=== PATIENT | female | born 1985 | race Asian ===

== ENCOUNTER 2024-09-25 15:05 | Emergency (ER) | payer BC ==
[2024-09-25] MEDS ORDERED: METOCLOPRAMIDE HCL INJECTION 10 MG/2 ML VIAL ONE (15:20)
[2024-09-25 15:24] VITALS: BP 124/96; PULSE 61; RESP 18; TEMP 98.4; BMI 30.7
[2024-09-25] MEDS: METOCLOPRAMIDE HCL INJECTION 10 MG/2 ML VIAL IVPUSH ONE (15:26)
[2024-09-25] MEDS ORDERED: ACETAMINOPHEN 325 MG TABLET (FP) ONE (16:19)
[2024-09-25] MEDS: ACETAMINOPHEN 325 MG TABLET (FP) PO ONE (16:27)
[2024-09-25 19:08] LABS: HCV DIAGNOSTIC IN-HOUSE W/RFLX NON-REACTIVE (NONREACTIVE)
[2024-09-25 19:09] LABS: HIV INTERPRETATION NEGATIVE (NEGATIVE)
== END 2024-09-25 17:02 | disposition home or self-care (01) ==
LOC: FER 15:05
PROC: 3E033GC Introduction of Other Therapeutic Substance into Peripheral Vein, Percutaneous Approach (ICD-10-PCS; principal; 2024-09-25)
DX: R51.9 Headache, unspecified (principal); R11.2 Nausea with vomiting, unspecified
CPT/HCPCS: 36415; 86803; 87389; 99284-25